=== PATIENT | male | born 1985 | race Hispanic/Latino ===

== ENCOUNTER 2022-11-28 19:12 | Emergency (ER) | payer OTHER ==
[~2022-11-28] VITALS: Ht 170.2 cm; Wt 94.3 kg
[2022-11-28 19:53] VITALS: BP 137/78; PULSE 54; RESP 18
[2022-11-28] MEDS ORDERED: CEFTRIAXONE 1G VIAL IM ONE (21:30)
[2022-11-28] MEDS ORDERED: CIPR7.5D OT (21:56)
[2022-11-28] MEDS ORDERED: AMOX1TAB16 PO (21:56)
== END 2022-11-28 22:01 | disposition home or self-care (01) ==
LOC: EDBD 19:12 → EDH 19:12
DX: H60.8X1 Other otitis externa, right ear (principal); Z98.890 Other specified postprocedural states
CPT/HCPCS: 99283; 96372; J0696; 96374

== ENCOUNTER 2023-02-14 17:03 | Emergency (ER) | payer BC, OTHER ==
[~2023-02-14] VITALS: Ht 167.6 cm; Wt 90.7 kg
[~2023-02-14 17:03] MED LIST: AMOX1TAB16 PO; CIPR7.5D OT
[2023-02-14 17:04] VITALS: BP 152/108; PULSE 71; RESP 17
[2023-02-14] MEDS ORDERED: TETANUS/DIPHTHERIA TOXOID [ADULT] 0.5 ML VIAL IM ONE (17:30)
[2023-02-14] MEDS ORDERED: LIDOCAINE HCL 1% 20 ML VIAL INJ SCH (18:00)
[2023-02-14] MEDS ORDERED: CIPR7.5D7 OT (18:23)
== END 2023-02-14 19:10 | disposition home or self-care (01) ==
LOC: EDH 17:03
DX: S61.214A Laceration without foreign body of right ring finger without damage to nail, initial encounter (principal); S67.195A Crushing injury of left ring finger, initial encounter; W23.0XXA Caught, crushed, jammed, or pinched between moving objects, initial encounter; Y93.89 Activity, other specified; Y92.89 Other specified places as the place of occurrence of the external cause; Y99.8 Other external cause status; Z59.7 Insufficient social insurance and welfare support
CPT/HCPCS: 12002; 73140; 90471; 90714

== ENCOUNTER 2023-02-24 11:57 | Emergency (ER) | payer BC ==
[~2023-02-24] VITALS: Ht 170.2 cm; Wt 90.7 kg
[~2023-02-24 11:57] MED LIST changes: +CIPR7.5D7 OT
[2023-02-24 12:45] VITALS: BP 126/75; PULSE 70; RESP 16; O2SAT 98
== END 2023-02-24 13:40 | disposition left against medical advice (07) ==
LOC: EDH 11:57
DX: Z48.02 Encounter for removal of sutures (principal); Z53.21 Procedure and treatment not carried out due to patient leaving prior to being seen by health care provider